=== PATIENT | female | born 1970 | race American Indian/Alaskan Native ===

== ENCOUNTER 2018-05-30 06:04 | Day surgery (SDC) | payer MEDICARE ==
[2018-05-30] MEDS ORDERED: MARCAINE-EPI 0.5%-1:200,000 INFILTRATI ONE ×2 (07:12→08:33)
[2018-05-30] MEDS ORDERED: XYLOCAINE 1% 20 mL ONE (07:13)
[2018-05-30] MEDS ORDERED: TORADOL ONE (07:13)
[2018-05-30] MEDS ORDERED: DECADRON IV NR (07:30)
[2018-05-30] MEDS ORDERED: NEURONTIN PO NR (07:30)
[2018-05-30] MEDS ORDERED: VERSED IV NR (07:30)
--- NOTE | 2018-05-30 07:38 | Anesthesia Day of Surgery ---
Anesthesia Day of Surgery - Day of Surgery Patient Examined: Yes Patient H&P Reviewed: Yes Patient is NPO: Yes
--- NOTE | 2018-05-30 07:38 | Anesthesia Consultation ---
Anesthesia Consult and Med Hx Date of service: 05/30/18 - Airway Anesthetic Teeth Evaluation: Good ROM Head & Neck: Adequate Mental/Hyoid Distance: Adequate Mallampati Class: Class I Intubation Access Assessment: Good - Pulmonary Exam CTA: Yes - Cardiac Exam Cardiac Exam: RRR - Pre-Operative Health Status ASA Pre-Surgery Classification: ASA2 Proposed Anesthetic Plan: General - Pulmonary Hx Smoking: No Hx Asthma: No Hx Respiratory Symptoms: No SOB: No Hx Sleep Apnea: Yes (RESOLVED WITH WT LOSS) - Cardiovascular System Hx Hypertension: Yes (resolved with weight loss) Hx Heart Attack/AMI: No - Central Nervous System Hx Seizures: No CVA: No - Gastrointestinal Hx Gastroesophageal Reflux Disease: No (resolved with weight loss) - Endocrine Hx Renal Disease: No Hx Liver Disease: No Hx Insulin Dependent Diabetes: No Hx Thyroid Disease: No - Hematic Hx Anemia: Yes - Other Systems Hx Alcohol Use: Yes (OCCAS) Hx Substance Use: No Hx Cancer: No Hx Obesity: Yes - Additional Comments Anesthesia Medical History Comments: Hx mild PONV with previous GA.
[2018-05-30] MEDS ORDERED: LEVAQUIN 500MG/100ML 500 MG/100 ML BAG IV NR (08:00)
[2018-05-30] MEDS ORDERED: LACTATED RINGERS 1,000 ML IV SCH (08:00)
[2018-05-30] MEDS ORDERED: XYLOCAINE 1% 20 mL INFILTRATI ONE (08:33)
[2018-05-30] MEDS ORDERED: TORADOL IV ONE (08:34)
[2018-05-30] MEDS ORDERED: NACL 0.9% IR ONE (08:35)
[2018-05-30] MEDS ORDERED: NORCO 5/325 PO PRN (09:14)
[2018-05-30] MEDS: DILAUDID IV PRN ×3 (09:15→09:39)
[2018-05-30] MEDS ORDERED: DILAUDID IV PRN (09:25)
[2018-05-30] MEDS ORDERED: TORADOL IV PRN (09:25)
[2018-05-30] MEDS ORDERED: ZOFRAN IV PRN (09:25)
[2018-05-30] MEDS ORDERED: TYLENOL PO PRN (09:25)
[2018-05-30] MEDS ORDERED: PERCOCET 5/325 PO PRN (09:25)
[2018-05-30] MEDS ORDERED: TRANSDERM-SCOP TD ONE (12:00)
[2018-05-30] MEDS ORDERED: BENADRYL PO ONE (12:00)
[2018-05-30 15:55] VITALS: BP 123/72
== END 2018-05-30 11:40 | disposition home or self-care (01) ==
LOC: OR 06:04
PROVIDERS: ATTEND Specialist
DX: K43.2 Incisional hernia without obstruction or gangrene (principal); I10 Essential (primary) hypertension; G43.909 Migraine, unspecified, not intractable, without status migrainosus; G47.30 Sleep apnea, unspecified; K21.9 Gastro-esophageal reflux disease without esophagitis; E66.9 Obesity, unspecified; Z68.28 Body mass index [BMI] 28.0-28.9, adult; Z79.899 Other long term (current) drug therapy; Z88.0 Allergy status to penicillin; Z88.1 Allergy status to other antibiotic agents; Z88.2 Allergy status to sulfonamides; Z91.09 Other allergy status, other than to drugs and biological substances; Z72.89 Other problems related to lifestyle; Z90.3 Acquired absence of stomach [part of]; Z98.890 Other specified postprocedural states; Z80.9 Family history of malignant neoplasm, unspecified; Z82.49 Family history of ischemic heart disease and other diseases of the circulatory system
CPT/HCPCS: 49654; 81025; C1781; J1100; J1170; J1885; J1956; J2250; J2405; J2704; J2710; J7120